=== PATIENT | female | born 1950 | race Caucasian/White ===

== ENCOUNTER → 2024-12-17 10:25 | Outpatient (REF) | payer MEDICARE, OTHER, SELFPAY | LOC: RCS 10:25 | PROVIDERS: ATTENDING PHYSICIAN Student in an Organized Health Care Education/Training Program | DX: R07.89 Other chest pain (principal) | CPT/HCPCS: 93017; 93350 ==

== ENCOUNTER → 2025-02-23 07:13 | Outpatient (REF) | payer MEDICARE, OTHER, SELFPAY | LOC: RCS 07:13 | PROVIDERS: ATTENDING PHYSICIAN Internal Medicine Cardiovascular Disease; FAMILY PHYSICIAN Student in an Organized Health Care Education/Training Program | DX: R06.02 Shortness of breath (principal) | CPT/HCPCS: 93306 ==

== ENCOUNTER 2025-02-24 07:30 | Day surgery (SDC) | payer MEDICARE, OTHER, SELFPAY ==
[2025-02-24] VITALS (20 sets, daily range): BP systolic 75–172; BP diastolic 59–87; BMI 24.5
[2025-02-24 08:02] LABS: Hematocrit 37.9 % (37.0-47.0); Hemoglobin 12.3 g/dL (12.0-16.0); Mean Corp Hgb Conc. 32.5 g/dL (33.0-37.0); Mean Corpuscular Volume 86.9 fL (81.0-99.0); Platelet Count 263 10^3/uL (130-400); Red Cell Dist. Width 13.9 % (11.5-14.5)
[2025-02-24 08:14] LABS: Glucose - Point of Care 147 mg/dl (70-99)
[2025-02-24] MEDS: LOW STRENGTH ASPIRIN 81 MG PO (08:20)
[2025-02-24] MEDS: NSS 212 ML IV (08:22)
[2025-02-24 11:35] LABS: ACT-LR - POC 186 Seconds (116-155)
[2025-02-24 11:43] LABS: ACT-LR - POC 303 Seconds (116-155)
[2025-02-24 12:04] LABS: ACT-LR - POC 274 Seconds (116-155)
--- NOTE | 2025-02-24 12:30 | PTCARENOTE ---
Received pt from laborer gold leaf, VSS, monitor shows SR. Right radial band intact, no bleeding or hematoma noted, slightly ecchymotic above puncture site, +cms to fingers. NTG at 40mcg/min. Denies chest pain at present. Instructed on activity
restrictions and ambulation time. Spouse at bedside, call kaur in reach.
[2025-02-24] MEDS: NORVASC 5 MG PO (14:47)
--- NOTE | 2025-02-24 16:51 | ITS.CL.CATH ---
Motion Picture Set Worker - Catheterization
Cardiac Catheterization
Procedure Report:
LEFT HEART CATHETERIZATION AND CORONARY INTERVENTION
Date of Procedure: February 24, 2025
Referring: Lexa Chisholm
PROCEDURES:
1. Left heart catheterization, coronary angiogram.
2. Moderate sedation.
3. Successful percutaneous coronary artery intervention of a 90% proximal RCA stenosis with one 3.0 x 15 mm Medtronic Terrance drug-eluting stent, postdilated using IVUS guidance with a 4.0 x 15 mm NC balloon at 18 marquita with an excellent angiographic
and IVUS based result.
4. Intravascular ultrasound (IVUS)
INDICATION: Abnormal stress Test
ACCESS: Right radial artery, 6Fr. sheath, under US guidance.
HEMODYNAMICS : (mmHg)
AO (s/d) : 235/105
LVEDP : 36
No significant gradient across the aortic valve to suggest aortic stenosis.
CORONARY FINDINGS
Dominance: Right
Left Main Trunk (LMT): Large caliber vessel that gives rise to the LAD and LCx branches and there is mild diffuse plaque.
Left Anterior Descending Artery (LAD): The LAD is a large caliber vessel that bifurcates into a bifid system. The true LAD running in the interventricular groove is smaller with diffuse 60-70% stenosis. It does not wrap the apex. The vessel has no
good landing zone for PCI and distally is likely a < 2mm vessel. The larger vessel has mild 20% stenosis.
Left Circumflex Artery (LCx): Large caliber vessel that gives off 2 major obtuse marginal (OM) branches as it courses along the atrio-ventricular (AV) groove. The LCx and its branches have mild to moderate diffuse atherosclerotic plaque.
Right Coronary Artery (RCA): Large caliber dominant vessel that gives rise to the posterior descending artery (RPDA) and postero-lateral ventricular (RPLV) branches distally. Proximal RCA has a 90% focal stenosis with intervention as noted below.
Otherwise there is mild diffuse atherosclerotic plaque.
CORONARY INTERVENTION: Decision was made to proceed with proximal RCA PCI. Additional heparin was given to maintain therapeutic ACT throughout the case. The RCA was selectively engaged using 6Fr JR4 guide. A 190cm 0.014' runthrough wire was advanced
into the distal vessel carefully navigating through prox RCA lesion. The lesion was predilated using 3.0x12mm semicompliant balloon with full expansion. The lesion was then stented with 3.0x15mm Medtronic Terrance [place]. Using IVUS guidance we post
dilated stent with 4.0x15mm NC balloon at 18atm with excellent angiographic and IVUS based result. Patient tolerated procedure well with no acute complications. Pt was loaded with 600mg plavix at end of case. She was given IV hydralazine and
labetalol initially before being started on nitro drip for severe HTN with BPs 230/100s. BP improved to 140-150s.
SEDATION: 67 minutes of procedural sedation was utilized. IV Midazolam and IV Fentanyl were administered. An independent biomedical scientist was present to assist with and help manage the patient's level of consciousness and physiologic status.
RADIATION SUMMARY: Fluoro Time (min): 10.4, Dose (mGy): 427.6, DAP (Gy.cm2) : 27.6
Closure Device: There were no immediate intra-procedural complications. The sheath was pulled in the laboratory technology teacher and a vascular-band applied to the right wrist for radial artery hemostasis using the patent hemostasis technique.
CONCLUSIONS
1. Successful percutaneous coronary artery intervention of a 90% proximal RCA stenosis with one 3.0 x 15 mm Medtronic [place] drug-eluting stent, postdilated using IVUS guidance with a 4.0 x 15 mm NC balloon at 18 marquita with an excellent angiographic and
IVUS based result.
2. Severely hypertensive while in the lab initiated on nitroglycerin drip along with IV boluses of antihypertensives with eventual improvement in blood pressure.
3. Elevated LVEDP at 35 mmHg in the setting of severe hypertension.
RECOMMENDATIONS
1. Wean radial band per protocol. Monitor right hand perfusion and for bleeding from the radial site following removal of the vascular-band following trans-radial access.
2. Continue aggressive medical therapy and risk factor modification for secondary CAD prevention.
3. Continue ASA 81 mg daily for life.
4. Continue Plavix for at least 12 months of uninterrupted dual anti-platelet therapy given drug-eluting stent ([place]) implantation to mitigate the risk of stent thrombosis. This is not to be stopped for any reason without the guidance of a
head teller.
5. Hydrate with normal saline to mitigate the risk of contrast-induced acute kidney injury.
6. Referral for outpatient cardiac rehab.
7. Follow-up with Dr. Lexa Chisholm
Copy to: Dr. Lexa Chisholm
Dilia Panda MD, FACC, [facility]
[2025-02-24] MEDS: LIPITOR 40 MG PO (18:04)
[2025-02-24] MEDS: LYRICA 75 MG PO ×2 (18:04→21:01)
[2025-02-24 18:13] LABS: Glucose - Point of Care 255 mg/dl (70-99)
[2025-02-24] MEDS: NOVOLOG FLEXPEN-MODERATE RESISTANCE 3 UNITS SC (18:58)
[2025-02-24] MEDS: TYLENOL 650 MG PO (21:00)
[2025-02-24 21:17] LABS: Glucose - Point of Care 167 mg/dl (70-99)
[2025-02-25] VITALS (73 sets, daily range): BP systolic 101–185; BP diastolic 58–134
--- NOTE | 2025-02-25 02:30 | PTCARENOTE ---
Pt c/o mid chest soreness this morning and mid back discomfort, denies radiating pain to arm or jaw. EKG obtained and was shown to electrical continuity tester CT PA, no changes from post cath EKG were seen. call center recruiter PA at bedside to assess pt, mid back pain resolved
when pt stood up from bed and some of chest pressure was relieved. BP's remains high, nitro gtt running at 25mcg, ordered to be increased at 30mcg by the electrical continuity tester CT PA, despite SBP 151. Pt denied dizziness or vission changes with ambulation. Call
kaur within reach, and advised to call for assistance.
[2025-02-25] MEDS: TYLENOL 650 MG PO ×3 (03:00→23:27)
[2025-02-25 03:57] LABS: Hematocrit 34.6 % (37.0-47.0); Hemoglobin 11.7 g/dL (12.0-16.0); Mean Corp Hgb Conc. 33.8 g/dL (33.0-37.0); Mean Corpuscular Volume 84.4 fL (81.0-99.0); Platelet Count 239 10^3/uL (130-400); Red Cell Dist. Width 13.8 % (11.5-14.5)
[2025-02-25 04:16] LABS: Blood Urea Nitrogen 22 mg/dl (7-17); Calcium 9.6 mg/dl (8.4-10.2); Carbon Dioxide 24 mmol/L (22-30); Chloride 110 mmol/L (98-107); Estimated Creatinine Clearance 59 ml/min; Glucose 168 mg/dl (70-99); HDL Cholesterol 66 mg/dl; LDL Cholesterol, Calculated 62 mg/dl; Potassium 4.1 mmol/L (3.5-5.1); Sodium 138 mmol/L (135-145); Very Low Density Lipoprotein 16 mg/dl (0-30); eGFR > 60.00
--- NOTE | 2025-02-25 04:27 | PTCARENOTE ---
Assumed care on pt at 1900, aaox3, denies cp or SOB. SR on the monitor, HR 80. Nitro gtt infusing at 10mcg via L hand, titrating as per protocol. dressing to R radial site CDI, small ecchymosis area, no swelling or bleeding noted, no c/o pain from
site. Tylenol given at bedtime for [place], + effect. Pt ambulates self around room, denies dizziness or lightheadedness, steady gait. Call kaur within reach, POC ongoing and in agreement with pt.
[2025-02-25] MEDS: TOPROL XL 25 MG PO (06:33)
[2025-02-25] MEDS: SYNTHROID 75 MCG PO (06:34)
[2025-02-25] MEDS: NORVASC 5 MG PO (06:34)
--- NOTE | 2025-02-25 06:39 | PTCARENOTE ---
SBP >160 this morning, nitro gtt infusing at 50mcg/min. chemistry teacher CT PA made aware, ok to give norvasc 5mg and toprol xl 25 mg scheduled for 0800 at this time. pt remains asymptomatic, chest pressure and back pain resolved.
[2025-02-25 08:01] LABS: Glucose - Point of Care 186 mg/dl (70-99)
[2025-02-25] MEDS: NOVOLOG FLEXPEN-MODERATE RESISTANCE 1 UNITS SC (08:51)
[2025-02-25] MEDS: LOW STRENGTH ASPIRIN 81 MG PO (08:52)
[2025-02-25] MEDS: ZETIA 10 MG PO (08:52)
[2025-02-25] MEDS: LYRICA 75 MG PO ×3 (08:52→23:26)
[2025-02-25] MEDS: CYMBALTA DELAYED RELEASE 60 MG PO (08:52)
[2025-02-25] MEDS: PLAVIX 75 MG PO (08:52)
[2025-02-25] MEDS: XANAX 0.25 MG PO (08:52)
--- NOTE | 2025-02-25 08:52 | CM ---
Reviewed chart. Met with Mrs. Montero to review discharge plans. She states prior to admission she resides with her spouse in a two story home with two steps to enter. She states she has an elevator to get to her the first floor where her main
suite is located. She states prior to admission she was independent with ambulation and adls. She states she love not have any DME in the home. She states she has a prescription plan and uses [facility] at [employer]. The discharge plan is to return
home with her spouse when medically stable.
[2025-02-25] MEDS: LEXAPRO 10 MG PO (08:53)
[2025-02-25] MEDS: LASIX 20 MG IV (08:53)
[2025-02-25] MEDS: COREG 6.25 MG PO ×2 (08:53→15:49)
--- NOTE | 2025-02-25 08:54 | W.PN.CARDCBS ---
Addendum entered and electronically signed by Dilia Panda MD 02/25/25 18:30:
I saw and examined the patient.
The Excelsior Machine Tender's note was reviewed and I agree with the note.
Comment: Overall patient is doing well. She did have a couple episodes of atypical chest discomfort last evening which resolved with Tylenol. No chest discomfort this morning.
Vital signs and lab work reviewed. Right radial access site without any evidence of hematoma or bruit. Dressing is in place which is clean, dry and intact.
On exam patient is well-appearing, in no acute distress, awake, alert and oriented x 3, regular rate, normal S1 and S2, no murmurs, rubs or gallops, abdomen is soft, nontender, nondistended with active bowel sounds, warm extremities without
significant edema.
Nitro drip is still continuing at 50 mcg due to hypertension.
Recommendations:
1. Post proximal RCA PCI with a 3.0 x 15 mm drug-eluting stent, postdilated using IVUS guidance with 4 0.0 x 15 mm NC balloon at high pressures with a
Angiographic result.
2. Uninterrupted dual antiplatelet therapy with daily baby aspirin and Plavix 75 mg along with high intensity statin and beta-arthur as tolerated. Given ongoing hypertension agree with switching metoprolol to carvedilol.
3. Continue daily amlodipine as initiated yesterday.
4. Work on weaning off nitroglycerin drip.
5. Agree with additional dose of IV diuretics this morning.
6. Out of bed to chair and ambulation and PT OT as needed.
7. Monitor another night given ongoing issues with hypertension.
Dilia Panda MD, [facility], [facility]
Original Note:
Today's Communication / Plan
-
post PCI, with uncontrolled HTN
titrate meds, diuresis
DAPT
oob ambulate
Impression / Plan
-
PCP: Nataliia Gomez MD
CDY: Lexa Chisholm MD
Impression:
Chest pain with abnormal NST
CAD post PCI prox RCA 3.0x15mm [place] 02/24/25
uncontrolled HTN
HLD
NIDDM
Hypothyroidism
Asthma
GERD
Peripheral neuropathy
Kidney stones
Plan:
post RCA stent, had some chest tightness last night which has resolved
intraprocedurally she had severely elevated bps requiring multiple meds and nitro drip, which is currently running at 55mcg/hr
BP still elevated, had new meds amlodipine and metoprolol at 6am but bp remains elevated
Will stop metoprolol and switch to carvedilol and wean nitro to off as able
With elevated LVEDP 35, will give one more dose lasix 20iv now
LDL 62, TG 81 will stop simvastatin and fenofibrate and switch to Atorvastatin 40mg daily, goal LDL <55
Hold Metformin post procedure, resume on saturday, continue SSI while in hospital
DAPT ASA/Plavix uninterrupted for 12 mo, then ASA indefinitely
She is very anxious about her BP and occasionally takes xanax for flying, we will give a dose now
Cardiac rehab c/s
Rad site stable, tele SR, no sig ectopy
continue to monitor closely, if bp improved and off nitro, poss home later today vs tomorrow
f/u [facility] 2-4 weeks at d/c
02/24/25 [facility]:
1. Successful percutaneous coronary artery intervention of a 90% proximal RCA stenosis with one 3.0 x 15 mm Medtronic [place] drug-eluting stent, postdilated using IVUS guidance with a 4.0 x 15 mm NC balloon at 18 marquita with an excellent angiographic and
IVUS based result.
2. Severely hypertensive while in the lab initiated on nitroglycerin drip along with IV boluses of antihypertensives with eventual improvement in blood pressure.
3. Elevated LVEDP at 35 mmHg in the setting of severe hypertension.
Progress Note - Stockholder
Subjective
Date of Service: February 25, 2025
denies cp, mild dyspnea
Objective
Labs:
02/25/25 03:02
02/25/25 03:02
Labs
Hgb 11.7 g/dL (12.0-16.0) L 02/25/25 03:02
Hct 34.6 % (37.0-47.0) L 02/25/25 03:02
Plt Count 239 10^3/uL (130-400) 02/25/25 03:02
Sodium 138 mmol/L (135-145) 02/25/25 03:02
Potassium 4.1 mmol/L (3.5-5.1) 02/25/25 03:02
BUN 22 mg/dl (7-17) H 02/25/25 03:02
Creatinine 0.8 mg/dL (0.6-1.0) 02/25/25 03:02
Glucose 168 mg/dl (70-99) H 02/25/25 03:02
Vital Signs and I&O:
Vital Signs
Temp Pulse Resp BP Pulse Ox
98.0 F 92 18 172/90 97
02/25/25 06:52 02/25/25 06:33 02/25/25 06:52 02/25/25 06:33 02/25/25 06:52
Vital Signs
Temp Pulse Resp BP Pulse Ox
98.0 F 92 18 172/90 97
02/25/25 06:52 02/25/25 06:33 02/25/25 06:52 02/25/25 06:33 02/25/25 06:52
Intake & Output
02/23/25 02/24/25 02/25/25 02/26/25
06:59 06:59 06:59 06:59
Intake Total 240 / 240
Balance 240 / 240
Physical Exam
Physical Exam
NAD, AOX3
S1, S2, RRR
LLL fine crackles, non labored, no wheeze
SNTND bsx4
R rad site c/d/i good pulse
[2025-02-25 10:04] LABS: Glycohemoglobin (HgbA1c) 8.0 % (4.0-5.6)
[2025-02-25 11:24] LABS: Glucose - Point of Care 297 mg/dl (70-99)
[2025-02-25] MEDS: NOVOLOG FLEXPEN-MODERATE RESISTANCE 5 UNITS SC (12:39)
[2025-02-25 16:19] LABS: Glucose - Point of Care 144 mg/dl (70-99)
[2025-02-25] MEDS: NOVOLOG FLEXPEN-MODERATE RESISTANCE SC (16:28)
[2025-02-25] MEDS: LIPITOR 40 MG PO (17:35)
[2025-02-25 18:05] LABS: Hepatitis C Antibody Negative (Negative)
--- NOTE | 2025-02-25 19:09 | PTCARENOTE ---
~5930-4237: Handoff report received from royer FITZGERALD. AOx4, NSR 1st degree AVB 70s-80s, + murmur noted, RA satting 97%. Pt c/o headache from nitro, PRN tylenol given. Pt indpendent to bathroom. Nitro gtt being weaned down. + pulses, no edema. 20
lasix and xanax given per order. All needs met at this time, call kaur within reach.
~1115: Nitro gtt weaned off, nitro gtt order also doiscontinued by Africa Uriostegui NP, SBP 110s. All needs met at this time, call kaur within reach.
~1145: SBP 160s-170s now since nitro gtt off, Dr Panda made aware, no new orders at this time.
~7906-1403: Patient SBP remains 130s-160s, another dose of coreg was given per order.
~9155-4271: Pt Aox4, NSR 1st degree AVB, RA. SBP 140s-160s. Pt does not c/o pain at this time. handoff report given to krista FITZGERALD.
[2025-02-25] MEDS: COREG 12.5 MG PO (19:39)
[2025-02-25 21:39] LABS: Glucose - Point of Care 158 mg/dl (70-99)
--- NOTE | 2025-02-26 01:34 | PTCARENOTE ---
Assumed care on pt at 1900, aaox3, denies cp or SOB. SR on the monitor with 1st dgr HB, HR 80's, no c/o cp or SOB. Call kaur within reach, POC ongoing and in agreement with pt.
[2025-02-26 04:06] VITALS: BP 143/71
[2025-02-26] MEDS: SYNTHROID 75 MCG PO (04:19)
[2025-02-26 04:47] LABS: Hematocrit 37.2 % (37.0-47.0); Hemoglobin 12.5 g/dL (12.0-16.0); Mean Corp Hgb Conc. 33.6 g/dL (33.0-37.0); Mean Corpuscular Volume 84.4 fL (81.0-99.0); Nucleated Red Blood Cells % 0 %; Platelet Count 264 10^3/uL (130-400); Red Cell Dist. Width 13.5 % (11.5-14.5)
[2025-02-26 05:10] LABS: Blood Urea Nitrogen 20 mg/dl (7-17); Calcium 9.7 mg/dl (8.4-10.2); Carbon Dioxide 25 mmol/L (22-30); Chloride 107 mmol/L (98-107); Estimated Creatinine Clearance 59 ml/min; Glucose 166 mg/dl (70-99); Potassium 4.2 mmol/L (3.5-5.1); Sodium 137 mmol/L (135-145); eGFR > 60.00
[2025-02-26 07:43] VITALS: BP 159/83
[2025-02-26 08:42] LABS: Glucose - Point of Care 188 mg/dl (70-99)
[2025-02-26] MEDS: CYMBALTA DELAYED RELEASE 60 MG PO (08:44)
[2025-02-26] MEDS: COREG 12.5 MG PO (08:44)
[2025-02-26] MEDS: LYRICA 75 MG PO (08:44)
[2025-02-26] MEDS: PLAVIX 75 MG PO (08:44)
[2025-02-26] MEDS: ZETIA 10 MG PO (08:44)
[2025-02-26] MEDS: LEXAPRO 10 MG PO (08:44)
[2025-02-26] MEDS: NORVASC 5 MG PO (08:44)
[2025-02-26] MEDS: LOW STRENGTH ASPIRIN 81 MG PO (08:45)
[2025-02-26] MEDS: NOVOLOG FLEXPEN-MODERATE RESISTANCE SC ×2 (08:48→12:32)
--- NOTE | 2025-02-26 09:01 | W.PN.CARDCBS ---
Addendum entered and electronically signed by Dilia Panda MD 02/26/25 18:34:
I saw and examined the patient.
The Shaping Machine Operator's note was reviewed and I agree with the note.
Comment: Overall patient is doing well. No further chest discomfort overnight and is doing well this morning. Improvement in her blood pressures.
Vital signs and lab work reviewed. On exam patient is well-appearing, in no acute distress, awake, alert and oriented x 3, regular rate, normal S1 and S2, no murmurs, rubs or gallops, abdomen is soft, nontender, nondistended with active bowel
sounds, warm extremities without significant edema. Right radial access site with dressing in place which is clean, dry and intact without evidence of hematoma or bruit.
Recommendations:
1. Post proximal RCA PCI with a 3.0 x 15 mm drug-eluting stent, postdilated using IVUS guidance with 4 0.0 x 15 mm NC balloon at high pressures with a
Angiographic result.
2. Uninterrupted dual antiplatelet therapy with daily baby aspirin and Plavix 75 mg along with high intensity statin and beta-arthur as tolerated. Continue with carvedilol as well as amlodipine.
3. Out of bed to chair and ambulation and PT OT as needed. Aggressive management of cardiovascular risk factors and outpatient referral for cardiac rehab.
4. Plan to recheck outpatient labs and cardiology follow-up will be set up.
Stable for discharge otherwise.
Dilia Panda MD, [facility], [facility]
Original Note:
Today's Communication / Plan
-
outpt labs in 2 weeks
Cardiology followup
home today
Impression / Plan
-
PCP: Nataliia Gomez MD
CDY: Lexa Chisholm MD
74 y/o, new onset CP, SOB, fatigue found to have abnormal stress echo with >1mm downsloping ST segments inferiorly, no WMA, EF 55-60%.
S/P prox RCA PCI w/[place] x1 on 02/24/25. BP severely elevated 220/110s. Managed with nitroglycerin gtt, hydralazine, amlodipine, carvedilol. Much improved and now down 150s. Feels much better, no posey/lightheadedness/cp/palps/dyspnea.
02/24/25 LHC- 90% prox RCA stenosis, s/p angioplasty/[place] x1
LAD bifurcates into a bifid system- true LAD smaller with diffuse 60-70% stenosis, larger vessel w/mild 20% stenosis
LVEDP 36- IV lasix
IMPRESSION:
Chest pain with abnormal stress echo
CAD, s/p RCA PCI
Residual LAD disease as noted- medical management
uncontrolled HTN
HLD
NIDDM
Hypothyroidism
Asthma
GERD
Peripheral neuropathy
Kidney stones
PLAN:
Tele- NSR, no vt/arrhythmia
Radial cath site stable
DAPT w/asa, plavix uninterrupted x12mo, then asa for life
stop simvastatin in favor of atorvastatin, lipid profile noted
BP much improved 140-160s range now- carvedilol 12.5mg/BID and amlodipine 5mg/d- jaz well so far and room to adjust at followup- metoprolol discontinued
creat stable post dye load/med adjustments- will check CMP, CBC in 1-2 weeks
HgbA1C 8.0%- covered w/ISS while here- ok to resume metformin today, recommended close PCP followup for better diabetic management
cardiac rehab consult
followup at [facility] arranged
Progress Note - Gold Frame Assembler
Subjective
Date of Service: February 26, 2025
Denies cp/palps/dyspnea
Denies LH/dizziness/headache
OOB ambulating
radial cath site without pain
Objective
Labs:
02/26/25 04:14
02/26/25 04:14
Labs
Hgb 12.5 g/dL (12.0-16.0) 02/26/25 04:14
Hct 37.2 % (37.0-47.0) 02/26/25 04:14
Plt Count 264 10^3/uL (130-400) 02/26/25 04:14
Sodium 137 mmol/L (135-145) 02/26/25 04:14
Potassium 4.2 mmol/L (3.5-5.1) 02/26/25 04:14
BUN 20 mg/dl (7-17) H 02/26/25 04:14
Creatinine 0.8 mg/dL (0.6-1.0) 02/26/25 04:14
Glucose 166 mg/dl (70-99) H 02/26/25 04:14
Vital Signs and I&O:
Vital Signs
Temp Pulse Resp BP Pulse Ox
98.4 F 73 20 159/83 95
02/26/25 07:41 02/26/25 08:44 02/26/25 07:41 02/26/25 08:44 02/26/25 07:43
Vital Signs
Temp Pulse Resp BP Pulse Ox
98.4 F 73 20 159/83 95
02/26/25 07:41 02/26/25 08:44 02/26/25 07:41 02/26/25 08:44 02/26/25 07:43
Intake & Output
02/24/25 02/25/25 02/26/25 02/27/25
06:59 06:59 06:59 06:59
Intake Total 240 / 240 240 / 240
Output Total 1800 / 1800
Balance 240 / 240 -1560 / -1560
Physical Exam
Physical Exam
AAOx3, MAEE 5
RRR S1 S2 no murmurs
CTA bilat, non labored
soft abd, + bs
right radial cath site RU, no ht/bleeding, non tender
bilat extremities w/palpable distal pulse, no edema
--- NOTE | 2025-02-26 09:42 | CM ---
Reviewed chart. Met with Mrs. Montero to review discharge plans. She states she is feeling well and maybe able to go home soon. Prior to admission she resides with her spouse in a two story home. She has an elevator that gets her to the first
floor. She has a first floor set-up where her main suite in located. Prior to admission she was independent with ambulation and adls. She does not have any DME in the home. She has a prescription plan and uses [facility] in [employer]. The
discharge plan is to return home with her spouse when medically stable.
[2025-02-26 11:40] VITALS: BP 130/61
--- NOTE | 2025-02-26 12:19 | PTCARENOTE ---
pt is sr on the monitor, hr in the 70s, vss. right radial cdi.
d/c instructions read to pt and pt verbalized understanding. iv and tele removed. pt left via wheelchair w/ staff member.
--- NOTE | 2025-02-26 14:14 | W.DS.TRANS ---
DC Summary - Erp Project Manager
-
Discharge Instructions:
Discharge Diagnosis/Procedures Angioplasty with stent to Right Coronary artery,
uncontrolled high blood pressure
Diet Low Cholesterol,Diabetic, Carb Controlled,2 Gram
Sodium
Driving Restrictions No driving for 24 hours
Blood Work CMP, CBC in 2 weeks- results to Dr. Chisholm and
Dr. Gomez
Other Services Cardiac Rehab
Instructions:
Stand-Alone Forms: DC Instructions- Cath/EP Lab
Changes to Home Medications: Yes
Discharge Medications:
DC Medications w/original date entered in [employer]
metformin 1,000 mg tablet 1,000 mg PO BID 06/19/10
naproxen sodium 220 mg tablet (Aleve) 220 mg PO PRN PRN PAIN 06/19/10
aspirin 81 mg tablet 81 mg PO QPM 02/24/25
duloxetine 60 mg capsule,delayed release 60 mg PO DAILY 02/24/25
escitalopram oxalate 10 mg tablet (Lexapro) 10 mg PO DAILY 02/24/25
ezetimibe 10 mg tablet 10 mg PO DAILY 02/24/25
levothyroxine 75 mcg tablet 75 mcg PO DAILY 02/24/25
montelukast 10 mg tablet 10 mg PO DAILY 02/24/25
pregabalin 75 mg capsule 75 mg PO TID 02/24/25
amlodipine 5 mg tablet 5 mg PO DAILY #9 tabs 02/25/25
atorvastatin 40 mg tablet 40 mg PO QPM #90 tabs 02/25/25
clopidogrel 75 mg tablet 75 mg PO DAILY #90 tabs 02/25/25
carvedilol 12.5 mg tablet 12.5 mg PO BID #60 tabs 02/26/25
Home Medication Changes
NEW: carvedilol, clopidogrel, atorvastatin, amlodipine
STOP: metoprolol, simvastatin, fenofibrate, celecoxib
Pending Results: No
== END 2025-02-26 12:33 | disposition home or self-care (01) ==
LOC: CATH 07:30
PROVIDERS: Nurse Practitioner Adult Health; ATTENDING PHYSICIAN Internal Medicine Interventional Cardiology; FAMILY PHYSICIAN Student in an Organized Health Care Education/Training Program; OTHER PHYSICIAN Internal Medicine Cardiovascular Disease
DX: I25.10 Atherosclerotic heart disease of native coronary artery without angina pectoris (principal); E03.9 Hypothyroidism, unspecified; E11.42 Type 2 diabetes mellitus with diabetic polyneuropathy; E78.5 Hyperlipidemia, unspecified; I10 Essential (primary) hypertension; J45.909 Unspecified asthma, uncomplicated; K21.9 Gastro-esophageal reflux disease without esophagitis; N20.0 Calculus of kidney; Z79.84 Long term (current) use of oral hypoglycemic drugs; Z79.02 Long term (current) use of antithrombotics/antiplatelets; Z79.899 Other long term (current) drug therapy
CPT/HCPCS: 99152; 99153; 92978; 80048; 80061; 82962; 83036; 85025; 85027; 85347; 86803; 93005; 93458; C1725; C1753; C1769; C1874; C1894; C9600; Q9967

== ENCOUNTER 2025-04-09 13:59 | Outpatient (RCR) | payer MEDICARE, OTHER, SELFPAY ==
[2025-04-05 14:33] LABS: Glucose - Point of Care 220 mg/dl (70-99)
[2025-04-05 15:11] LABS: Glucose - Point of Care 138 mg/dl (70-99)
[2025-04-07 10:56] LABS: Glucose - Point of Care 179 mg/dl (70-99)
[2025-04-07 11:45] LABS: Glucose - Point of Care 115 mg/dl (70-99)
[2025-04-09 11:09] LABS: Glucose - Point of Care 130 mg/dl (70-99)
== END 2025-04-09 23:59 | disposition home or self-care (01) ==
LOC: CRHB 13:59
PROVIDERS: ATTENDING PHYSICIAN Internal Medicine Cardiovascular Disease; FAMILY PHYSICIAN Student in an Organized Health Care Education/Training Program
DX: Z95.5 Presence of coronary angioplasty implant and graft (principal)
CPT/HCPCS: 82962; G0422; G0423

== ENCOUNTER → 2025-04-22 12:58 | Outpatient (REF) | payer MEDICARE, OTHER, SELFPAY | LOC: RAD 12:58 | PROVIDERS: ATTENDING PHYSICIAN Student in an Organized Health Care Education/Training Program; FAMILY PHYSICIAN Student in an Organized Health Care Education/Training Program | DX: J38.00 Paralysis of vocal cords and larynx, unspecified (principal) | CPT/HCPCS: 70491; Q9967 ==

== ENCOUNTER → 2025-05-05 08:54 | Outpatient (REF) | payer MEDICARE, OTHER, SELFPAY | LOC: HWRCS 08:54 | PROVIDERS: ATTENDING PHYSICIAN Internal Medicine Cardiovascular Disease; FAMILY PHYSICIAN Student in an Organized Health Care Education/Training Program | DX: R07.89 Other chest pain (principal) | CPT/HCPCS: 78452; 93017; A9500 ==

== ENCOUNTER 2025-06-11 11:40 | Outpatient (RCR) | payer MEDICARE, OTHER, SELFPAY ==
[2025-05-12 10:54] LABS: Glucose - Point of Care 184 mg/dl (70-99)
[2025-05-12 11:52] LABS: Glucose - Point of Care 170 mg/dl (70-99)
[2025-05-14 09:54] LABS: Glucose - Point of Care 250 mg/dl (70-99)
[2025-05-14 11:06] LABS: Glucose - Point of Care 133 mg/dl (70-99)
[2025-05-17 11:04] LABS: Glucose - Point of Care 296 mg/dl (70-99)
[2025-05-17 11:56] LABS: Glucose - Point of Care 197 mg/dl (70-99)
[2025-05-19 10:53] LABS: Glucose - Point of Care 217 mg/dl (70-99)
[2025-05-19 11:45] LABS: Glucose - Point of Care 144 mg/dl (70-99)
[2025-05-21 10:58] LABS: Glucose - Point of Care 180 mg/dl (70-99)
[2025-05-21 11:48] LABS: Glucose - Point of Care 122 mg/dl (70-99)
[2025-05-24 11:07] LABS: Glucose - Point of Care 177 mg/dl (70-99)
[2025-05-24 12:09] LABS: Glucose - Point of Care 160 mg/dl (70-99)
[2025-05-26 11:18] LABS: Glucose - Point of Care 181 mg/dl (70-99)
[2025-05-26 12:18] LABS: Glucose - Point of Care 122 mg/dl (70-99)
[2025-05-28 10:54] LABS: Glucose - Point of Care 156 mg/dl (70-99)
[2025-05-28 11:54] LABS: Glucose - Point of Care 115 mg/dl (70-99)
[2025-05-31 10:58] LABS: Glucose - Point of Care 186 mg/dl (70-99)
[2025-05-31 12:08] LABS: Glucose - Point of Care 105 mg/dl (70-99)
== END 2025-06-11 23:59 | disposition home or self-care (01) ==
LOC: CRHB 11:40
PROVIDERS: ATTENDING PHYSICIAN Internal Medicine Cardiovascular Disease; FAMILY PHYSICIAN Student in an Organized Health Care Education/Training Program
DX: Z95.5 Presence of coronary angioplasty implant and graft (principal)
CPT/HCPCS: 82962; G0422; G0423